=== PATIENT | male | born 1995 | race African-American/Black ===

== ENCOUNTER 2017-02-20 02:33 | Emergency (ER) | payer BC ==
[~2017-02-20] VITALS: Ht 188 cm; Wt 95.5 kg
[2017-02-20 02:37] VITALS: BP 106/71; TEMP 98
[2017-02-20 03:33] LABS: BASO % 0.5 % (0.0-2.0); EOS % 0.1 % (0-4.0); GRAN # 4.8 (1.4-6.5); GRAN % 64.4 % (42.2-75.2); HEMATOCRIT 40.6 % (42.0-52.0); HEMOGLOBIN 14.2 g/dl (13.5-18.0); LYMPH # 1.7 (1.2-3.4); LYMPH % 23.3 % (20.0-51.0); MEAN CELL VOLUME 90 fl (80.0-100.0); MEAN CORPUSCULAR HEMOGLOBIN 31 pg (27.0-31.0); MEAN CORPUSCULAR HGB CONC 35 g/dl (33.0-37.0); MEAN PLATELET VOLUME 9.4 fl (7.4-10.4); MONO # 0.9 (0.1-0.6); MONO % 11.4 % (1.7-9.3); PLATELET COUNT 235 K/mm3 (130-400); RED BLOOD COUNT 4.52 M/mm3 (4.20-5.60); REDCELL DISTRIBUTION WIDTH-CV 11.9 % (11.5-14.5); WHITE BLOOD COUNT 7.4 K/mm3 (4.8-10.8)
[2017-02-20 03:46] LABS: CREATININE, serum 1.13 mg/dL (0.66-1.25)
[2017-02-20] MEDS ORDERED: XANAX .25M0.25 MG/TA PO (04:19)
[2017-02-20 04:26] VITALS: PULSE 70
== END 2017-02-20 04:26 | disposition home or self-care (01) ==
LOC: COL.ER 02:33
PROVIDERS: Emergency Medicine
DX: R06.4 Hyperventilation (principal); F41.9 Anxiety disorder, unspecified; R00.1 Bradycardia, unspecified

== ENCOUNTER → 2017-04-01 | Outpatient (CLI) | payer BC ==
[~2017-04-01] MED LIST: XANAX .25M0.25 MG/TA PO
== END ==
LOC: COL.RAD 03-27 12:30
DX: R20.2 Paresthesia of skin (principal); R53.1 Weakness

== ENCOUNTER 2017-09-22 20:00 | Emergency (ER) | payer BC ==
[~2017-09-22] VITALS: Ht 185.4 cm; Wt 86.4 kg
[2017-09-22 20:02] VITALS: BP 130/77; TEMP 99.3
[2017-09-22] MEDS ORDERED: AMOXICILLIN 50500 MG PO (20:46)
[2017-09-22 21:05] VITALS: PULSE 79
== END 2017-09-22 21:05 | disposition home or self-care (01) ==
LOC: COL.ER 20:00
DX: J02.0 Streptococcal pharyngitis (principal)

== ENCOUNTER 2018-03-26 23:43 | Emergency (ER) | payer BC ==
[~2018-03-26] VITALS: Ht 185.4 cm; Wt 95.5 kg
[~2018-03-26 23:43] MED LIST changes: +AMOXICILLIN 50500 MG PO
[2018-03-26 23:52] VITALS: BP 134/91; PULSE 103; TEMP 99.9
[2018-03-27] MEDS ORDERED: CEPHALEXIN500 M1 PO (00:20)
== END 2018-03-27 00:48 | disposition home or self-care (01) ==
LOC: COL.ER 23:43
DX: T21.62XA Corrosion of second degree of abdominal wall, initial encounter (principal)